=== PATIENT | male | born 1990 | race Caucasian/White ===

== ENCOUNTER → 2017-08-10 | Outpatient (CLI) | payer OTHER ==
[~2017-08-10] MED LIST: /DIPH25TAB PO; PANT40TA2 PO; [UNRECOGNIZED DRUG - REMARK] PO
--- NOTE | 2017-08-10 18:54 | REP ---
Clinical: Trauma. Technique: AP, lateral, bilateral oblique views of the left third digit. Findings: A comminuted nondisplaced fracture of the distal phalanx terminal tuft is appreciated with overlying soft tissue swelling. No subcutaneous emphysema or radiodense foreign body. Impression: Comminuted nondisplaced fracture of the distal phalanx terminal tuft. Signed by Ramana Chowdhury MD 08/10/2017 06:45 P
== END ==
LOC: M WUC 18:09
PROVIDERS: ATTEND Physician Assistant
DX: S62.661A Nondisplaced fracture of distal phalanx of left index finger, initial encounter for closed fracture (principal); X58.XXXA Exposure to other specified factors, initial encounter; Y92.9 Unspecified place or not applicable; Y93.9 Activity, unspecified; Y99.9 Unspecified external cause status

== ENCOUNTER → 2018-03-07 | Outpatient (CLI) | payer BC | LOC: M OUTALCOH 08:02 | DX: F10.10 Alcohol abuse, uncomplicated (principal) ==

== ENCOUNTER 2018-07-30 20:55 | Emergency (ER) | payer OTHER, BC | END 2018-07-30 22:00 | disposition left against medical advice (07) | LOC: M ED 20:55 | DX: R56.9 Unspecified convulsions (principal); R00.0 Tachycardia, unspecified; R94.31 Abnormal electrocardiogram [ECG] [EKG]; F41.1 Generalized anxiety disorder; Z72.0 Tobacco use; F12.10 Cannabis abuse, uncomplicated; F19.10 Other psychoactive substance abuse, uncomplicated; Z79.899 Other long term (current) drug therapy; Z88.2 Allergy status to sulfonamides | CPT/HCPCS: 93005 ==

== ENCOUNTER → 2019-01-08 | Outpatient (REF) | payer OTHER ==
[2019-01-08 17:45] LABS: INFLUENZA A AMPLIFICATION POSITIVE (NEGATIVE); INFLUENZA B AMPLIFICATION NEGATIVE (NEGATIVE)
== END ==
LOC: M LAB REF 16:24
PROVIDERS: ATTEND Physician Assistant Medical
DX: J11.1 Influenza due to unidentified influenza virus with other respiratory manifestations (principal)

== ENCOUNTER → 2020-01-17 | Outpatient (REF) | payer OTHER ==
[~2020-01-17] MED LIST changes: -/DIPH25TAB PO; +DIPH1TAB2 PO
== END ==
LOC: M LAB REF 14:25
PROVIDERS: ATTEND Physician Assistant
DX: R05 Cough (principal)

== ENCOUNTER → 2020-01-27 | Outpatient (CLI) | payer OTHER | LOC: M LABSMTC 11:03 | PROVIDERS: ATTEND Family Medicine | DX: Z11.59 Encounter for screening for other viral diseases (principal); Z20.828 Contact with and (suspected) exposure to other viral communicable diseases ==

== ENCOUNTER 2020-04-12 10:01 | Emergency (ER) | payer OTHER ==
[~2020-04-12] VITALS: Ht 185.4 cm; Wt 127.0 kg
[2020-04-12] MEDS ORDERED: LIDOCAINE 1% MDV 20ML VIAL SC ONE (11:15)
[2020-04-12] MEDS ORDERED: BOOSTRIX/ADACEL VACCINE (DIPHTH/PERTUSS/ACELL/TETANUS) 0.5ML SYR IM ONE (11:15)
[2020-04-12] MEDS ORDERED: KEFL500C17 PO (13:30)
[2020-04-12 13:43] VITALS: BP 150/100
--- NOTE | 2020-04-17 08:43 | REP ---
Four views left second and third fingers: 04/12/2020. Indication: Pain following injury. Comparison: None. Findings: There is no acute fracture, subluxation or dislocation. Soft tissue injury of the second digit is noted. No lytic or blastic lesions are present. Impression: No acute osseous injury. Electronically Signed by Nemesio Mendez DO 04/17/2020 08:34 A
== END 2020-04-12 13:47 | disposition home or self-care (01) ==
LOC: M ED 10:01
DX: S61.213A Laceration without foreign body of left middle finger without damage to nail, initial encounter (principal); S61.211A Laceration without foreign body of left index finger without damage to nail, initial encounter; W29.3XXA Contact with powered garden and outdoor hand tools and machinery, initial encounter; Y92.007 Garden or yard of unspecified non-institutional (private) residence as the place of occurrence of the external cause; Y93.H2 Activity, gardening and landscaping; Y99.9 Unspecified external cause status; Z88.2 Allergy status to sulfonamides; F17.218 Nicotine dependence, cigarettes, with other nicotine-induced disorders

== ENCOUNTER 2020-04-28 14:47 | Emergency (ER) | payer OTHER ==
[~2020-04-28] VITALS: Ht 185.4 cm; Wt 125.2 kg
[~2020-04-28 14:47] MED LIST changes: +KEFL500C17 PO
[2020-04-28] MEDS ORDERED: IBUPROFEN (14:53)
[2020-04-28] MEDS ORDERED: ACETAMINOPHEN 500 MG TAB PO ONE (15:30)
[2020-04-28] MEDS ORDERED: LIDOCAINE 5% (LIDODERM) PATCH TD ONE (15:30)
[2020-04-28] MEDS ORDERED: CYCL-707 PO (16:51)
[2020-04-28] MEDS ORDERED: NAPR-837 PO (16:51)
--- NOTE | 2020-04-28 16:55 | REP ---
CT LUMBAR SPINE WITHOUT CONTRAST: HISTORY: Moderate vertebral tenderness. Limited range of motion. Comparison CT study, December 20, 2013. TECHNIQUE: Helical scanning is acquired and 4 mm axial images are reformatted. Coronal and sagittal multiplanar re-formation images are generated and reviewed. 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 Lumbar vertebral body heights are preserved. No fracture or collapse is seen. Disc spaces are maintained. Alignment is normal. There is no evidence of spondylolysis or spondylolisthesis. At L5-S1, there is a broad-based left paracentral disc protrusion compressing the left ventral margin of the thecal sac and contacting the S1 root. Canal size is borderline at L4-5. No evidence of disc protrusion. Canal size is borderline at L3-4. Study is otherwise unremarkable. IMPRESSION: No fracture or other acute bony abnormality. Broad-based left paracentral disc protrusion suspected at L5-S1 with thecal sac compression. Borderline canal size at L4-5 and L3-4. Electronically Signed by Seamus Clark MD 04/28/2020 05:22 P
[2020-04-28] MEDS ORDERED: CYCLOBENZAPRINE 10MG TABLET PO ONE (17:00)
[2020-04-28] MEDS ORDERED: KETOROLAC TROMETHAMINE 10 MG TAB PO ONE (17:00)
[2020-04-28 17:04] VITALS: BP 134/89
[2020-04-28] MEDS ORDERED: **NOTE PATIENT COMMENT** MISC XX SCH (21:00)
== END 2020-04-28 17:08 | disposition home or self-care (01) ==
LOC: M ED 14:47
DX: M51.27 Other intervertebral disc displacement, lumbosacral region (principal); I10 Essential (primary) hypertension; J45.909 Unspecified asthma, uncomplicated; K21.9 Gastro-esophageal reflux disease without esophagitis; R51 Headache; F17.210 Nicotine dependence, cigarettes, uncomplicated; Z88.2 Allergy status to sulfonamides

== ENCOUNTER 2022-09-28 15:21 | Emergency (ER) | payer OTHER ==
[~2022-09-28] VITALS: Ht 182.9 cm; Wt 119.7 kg
[~2022-09-28 15:21] MED LIST changes: +CYCL-707 PO; +IBUPROFEN; +NAPR-837 PO
[2022-09-28 15:23] VITALS: BP 178/95
[2022-09-28] MEDS ORDERED: CLON-412 (15:33)
[2022-09-28] MEDS ORDERED: BUPR1FIL SL (15:33)
[2022-09-28 17:34] LABS: BLOOD UREA NITROGEN 12 MG/DL (9-23); CALCIUM LEVEL 9.4 MG/DL (8.5-10.1); CARBON DIOXIDE LEVEL 24 MMOL/L (20-31); CHLORIDE LEVEL 105 MMOL/L (98-107); CPK CREATINE PHOSPHOKINASE 164 U/L (46-171); CREATININE FOR GFR 0.76 MG/DL (0.70-1.30); GLOMERULAR FILTRATION RATE > 60.0 (>60); GLUCOSE, FASTING 104 MG/DL (60-100); POTASSIUM SERUM 3.8 MMOL/L (3.5-5.1); SODIUM LEVEL 139 MMOL/L (136-145)
== END 2022-09-28 19:10 | disposition home or self-care (01) ==
LOC: M ED 15:21
DX: T40.5X1A Poisoning by cocaine, accidental (unintentional), initial encounter (principal); S00.03XA Contusion of scalp, initial encounter; W01.10XA Fall on same level from slipping, tripping and stumbling with subsequent striking against unspecified object, initial encounter; F19.10 Other psychoactive substance abuse, uncomplicated; F17.200 Nicotine dependence, unspecified, uncomplicated; Z88.2 Allergy status to sulfonamides

== ENCOUNTER 2022-09-30 03:03 | Emergency (ER) | payer OTHER ==
[~2022-09-30] VITALS: Ht 182.9 cm; Wt 121.5 kg
[~2022-09-30 03:03] MED LIST changes: +BUPR1FIL SL; +CLON-412
[2022-09-30 07:32] LABS: BLOOD UREA NITROGEN 22 MG/DL (9-23); CALCIUM LEVEL 8.8 MG/DL (8.5-10.1); CARBON DIOXIDE LEVEL 25 MMOL/L (20-31); CHLORIDE LEVEL 106 MMOL/L (98-107); CPK CREATINE PHOSPHOKINASE 157 U/L (46-171); CREATININE FOR GFR 0.88 MG/DL (0.70-1.30); GLOMERULAR FILTRATION RATE > 60.0 (>60); GLUCOSE, FASTING 134 MG/DL (60-100); MB/CK RELATIVE INDEX 1.27 (< OR =4); POTASSIUM SERUM 4.2 MMOL/L (3.5-5.1); SODIUM LEVEL 140 MMOL/L (136-145)
[2022-09-30] MEDS ORDERED: PANTOPRAZOLE 40MG VIAL IV ONE (08:35)
[2022-09-30 09:56] LABS: BASO % 0.4 % (0.0-1.0); EOS # 0.3 10^3/uL (0.0-0.5); EOS % 3.5 % (0.0-3.0); HEMATOCRIT 39.6 % (42.0-52.0); HEMOGLOBIN 13.2 g/dl (13.5-17.5); LYMPH # 2.8 10^3/uL (1.5-5.0); LYMPH % 36.2 % (24.0-44.0); MEAN CORPUSCULAR HGB CONC 33.3 g/dl (32.0-36.5); MONO # 0.5 10^3/uL (0.0-0.8); MONO % 6.7 % (2.0-8.0); NEUTROPHILS # 4.1 10^3/uL (1.5-8.5); NEUTROPHILS % 52.9 % (36.0-66.0); PLATELET COUNT, AUTOMATED 219 10^3/uL (150-450); RED BLOOD COUNT 4.26 10^6/uL (4.30-6.10); WHITE BLOOD COUNT 7.8 10^3/uL (4.0-10.0)
[2022-09-30 10:06] LABS: INR 0.96
[2022-09-30 10:07] LABS: PARTIAL THROMBOPLASTIN TIME 29.7 SECONDS (24.8-34.2)
[2022-09-30 10:30] LABS: AMPHETAMINES LEVEL URINE NEGATIVE (NEGATIVE); BARBITURATES URINE NEGATIVE (NEGATIVE); BENZODIAZEPINES URINE NEGATIVE (NEGATIVE); CANNABINOIDS URINE NEGATIVE (NEGATIVE); METHADONE URINE NEGATIVE (NEGATIVE)
[2022-09-30] MEDS ORDERED: ACETAMINOPHEN 500 MG TAB PO ONE (10:35)
[2022-09-30] MEDS ORDERED: ISOVUE-370 76% 100ML VIAL As Ordered ONE (10:52)
[2022-09-30 11:10] LABS: D-DIMER QUANT < 270 ng/ml (<500)
[2022-09-30 11:12] LABS: CK-MB VALUE MASS 1.4 NG/ML (<3.6); LIPASE 36 U/L (12-53)
[2022-09-30 11:14] LABS: ALBUMIN 3.6 G/DL (3.2-5.2); ALKALINE PHOSPHATASE 67 U/L (46-116); ALT/SGPT 21 U/L (7.0-40); AST/SGOT 17 U/L (<34); BILIRUBIN,DIRECT 0.1 MG/DL (<0.4); BILIRUBIN,TOTAL 0.5 MG/DL (0.3-1.2)
[2022-09-30 11:16] LABS: CPK CREATINE PHOSPHOKINASE 137 U/L (46-171); MB/CK RELATIVE INDEX 1.02 (< OR =4)
[2022-09-30] MEDS ORDERED: HOME MED LIST COMPLETE! XX SCH (11:55)
[2022-09-30 12:00] LABS: CK-MB VALUE MASS 1.3 NG/ML (<3.6); RSV AMPLIFICATION NEGATIVE (NEGATIVE)
[2022-09-30] MEDS ORDERED: LORazepam 2 MG/ML VIAL IV STA (12:27)
[2022-09-30 12:37] LABS: CPK CREATINE PHOSPHOKINASE 117 U/L (46-171); MB/CK RELATIVE INDEX 1.11 (< OR =4)
[2022-09-30 13:23] VITALS: BP 129/78
[2022-09-30 14:25] LABS: PHENCYCLIDINE URINE NEGATIVE (NEGATIVE)
[2022-09-30 14:36] LABS: COCAINE METABOLITE URINE POSITIVE (NEGATIVE); OPIATES URINE POSITIVE (NEGATIVE)
== END 2022-09-30 13:59 | disposition left against medical advice (07) ==
LOC: M ED 03:03
DX: R07.9 Chest pain, unspecified (principal); F19.10 Other psychoactive substance abuse, uncomplicated; R53.1 Weakness; Z53.20 Procedure and treatment not carried out because of patient's decision for unspecified reasons; M79.651 Pain in right thigh; R33.9 Retention of urine, unspecified; R94.31 Abnormal electrocardiogram [ECG] [EKG]; I10 Essential (primary) hypertension; K21.9 Gastro-esophageal reflux disease without esophagitis; J45.909 Unspecified asthma, uncomplicated; R51.9 Headache, unspecified; F32.A Depression, unspecified; F41.9 Anxiety disorder, unspecified; Z88.2 Allergy status to sulfonamides; Z79.899 Other long term (current) drug therapy
CPT/HCPCS: 70450; 71046; 71275; 72125; 80048; 80076; 80307; 81000; 81015; 82550; 82553; 83605; 83690; 85025; 85379; 85610; 85730; 87631; 93005; 93971; 96374; 99284; C9113

== ENCOUNTER 2022-10-03 22:35 | Emergency (ER) | payer OTHER ==
[~2022-10-03] VITALS: Ht 182.9 cm; Wt 121.4 kg
[2022-10-03] MEDS ORDERED: ASPI-161 PO (22:44)
[2022-10-04 08:34] LABS: BASO % 0.5 % (0.0-1.0); EOS # 0.3 10^3/uL (0.0-0.5); EOS % 3.2 % (0.0-3.0); HEMATOCRIT 41.5 % (42.0-52.0); HEMOGLOBIN 13.9 g/dl (13.5-17.5); LYMPH # 2.4 10^3/uL (1.5-5.0); MEAN CORPUSCULAR HEMOGLOBIN 30.6 pg (27.0-33.0); MEAN CORPUSCULAR HGB CONC 33.5 g/dl (32.0-36.5); MEAN CORPUSCULAR VOLUME 91.4 fl (80.0-96.0); MONO # 0.5 10^3/uL (0.0-0.8); MONO % 6.4 % (2.0-8.0); NEUTROPHILS # 4.5 10^3/uL (1.5-8.5); NEUTROPHILS % 58.1 % (36.0-66.0); PLATELET COUNT, AUTOMATED 233 10^3/uL (150-450); RED BLOOD COUNT 4.54 10^6/uL (4.30-6.10); WHITE BLOOD COUNT 7.7 10^3/uL (4.0-10.0)
[2022-10-04 09:02] LABS: BLOOD UREA NITROGEN 14 MG/DL (9-23); CARBON DIOXIDE LEVEL 29 MMOL/L (20-31); CHLORIDE LEVEL 103 MMOL/L (98-107); CK-MB VALUE MASS < 1.0 NG/ML (<3.6); CPK CREATINE PHOSPHOKINASE 52 U/L (46-171); CREATININE FOR GFR 0.72 MG/DL (0.70-1.30); GLOMERULAR FILTRATION RATE > 60.0 (>60); GLUCOSE, FASTING 112 MG/DL (60-100); MB/CK RELATIVE INDEX 1.92 (< OR =4); SODIUM LEVEL 139 MMOL/L (136-145)
[2022-10-04 09:04] LABS: APPEARANCE, URINE MANUAL CLEAR (CLEAR); COLOR, URINE MANUAL YELLOW (YELLOW)
[2022-10-04 09:07] LABS: BILIRUBIN, URINE MANUAL NEGATIVE (NEGATIVE); BLOOD URINE MANUAL POSITIVE (NEGATIVE); GLUCOSE, URINE (UA) MANUAL NEGATIVE (NEGATIVE); KETONE, URINE MANUAL NEGATIVE (NEGATIVE); LEUKOCYTE ESTERASE, URINE MAN NEGATIVE (NEGATIVE); NITRITE, URINE MANUAL NEGATIVE (NEGATIVE); PROTEIN, URINE MANUAL NEGATIVE (NEGATIVE); UROBILINOGEN, URINE MANUAL 1 MG mg/dl (NORMAL)
[2022-10-04 09:21] LABS: BACTERIA, URINE SMALL AMOUNT; HYALINE CAST, URINE NONE SEEN /lpf (0-1); MUCUS, URINE SMALL AMOUNT (NEGATIVE); SQUAMOUS EPITHELIAL CELL URINE SMALL AMOUNT /hpf (SMALL AMT); WBC, URINE 0-1 /hpf (0-3)
[2022-10-04 10:16] LABS: CK-MB VALUE MASS < 1.0 NG/ML (<3.6)
[2022-10-04 10:18] LABS: CPK CREATINE PHOSPHOKINASE 50 U/L (46-171)
[2022-10-04] MEDS ORDERED: NORV5TAB PO (11:13)
[2022-10-04 11:27] VITALS: BP 142/85
== END 2022-10-04 11:29 | disposition home or self-care (01) ==
LOC: M ED 22:35
DX: R07.89 Other chest pain (principal); R03.0 Elevated blood-pressure reading, without diagnosis of hypertension; K21.9 Gastro-esophageal reflux disease without esophagitis; F19.10 Other psychoactive substance abuse, uncomplicated; F17.210 Nicotine dependence, cigarettes, uncomplicated; Z88.2 Allergy status to sulfonamides; Z79.82 Long term (current) use of aspirin; Z79.899 Other long term (current) drug therapy

== ENCOUNTER → 2023-07-13 | Outpatient (CLI) | payer OTHER ==
[~2023-07-13] MED LIST changes: +ASPI-161 PO; +NORV5TAB PO
[2023-07-13 08:43] LABS: BASO % 0.7 % (0.0-1.0); EOS # 0.3 10^3/uL (0.0-0.5); EOS % 4.7 % (0.0-3.0); HEMATOCRIT 42.4 % (42.0-52.0); HEMOGLOBIN 14.3 g/dl (13.5-17.5); LYMPH # 1.9 10^3/uL (1.5-5.0); LYMPH % 33.7 % (24.0-44.0); MEAN CORPUSCULAR HEMOGLOBIN 30.8 pg (27.0-33.0); MEAN CORPUSCULAR HGB CONC 33.7 g/dl (32.0-36.5); MEAN CORPUSCULAR VOLUME 91.4 fl (80.0-96.0); MONO # 0.5 10^3/uL (0.0-0.8); MONO % 9.1 % (2.0-8.0); NEUTROPHILS # 2.9 10^3/uL (1.5-8.5); NEUTROPHILS % 50.9 % (36.0-66.0); PLATELET COUNT, AUTOMATED 216 10^3/uL (150-450); RED BLOOD COUNT 4.64 10^6/uL (4.30-6.10); WHITE BLOOD COUNT 5.7 10^3/uL (4.0-10.0)
[2023-07-13 09:09] LABS: ALBUMIN 3.8 G/DL (3.2-5.2); ALKALINE PHOSPHATASE 63 U/L (46-116); ALT/SGPT 26 U/L (7.0-40); AST/SGOT 10 U/L (<34); BILIRUBIN,TOTAL 0.7 MG/DL (0.3-1.2); BLOOD UREA NITROGEN 19 MG/DL (9-23); CALCIUM LEVEL 8.8 MG/DL (8.5-10.1); CARBON DIOXIDE LEVEL 28 MMOL/L (20-31); CHLORIDE LEVEL 105 MMOL/L (98-107); CHOLESTEROL LEVEL 208 MG/DL (<200); CHOLESTEROL RISK RATIO 6.02 (<5); CREATININE FOR GFR 0.64 MG/DL (0.70-1.30); GLOMERULAR FILTRATION RATE > 60.0 (>60); GLUCOSE, FASTING 105 MG/DL (60-100); HDL CHOLESTEROL 34.5 MG/DL (>40); LDL CHOLESTEROL 120.1 MG/DL (<100); NON-HDL-C 173.5 MG/DL; POTASSIUM SERUM 4.2 MMOL/L (3.5-5.1); SODIUM LEVEL 140 MMOL/L (136-145); TOTAL PROTEIN 6.2 G/DL (5.7-8.2); TRIGLYCERIDES LEVEL 267 MG/DL (<150)
[2023-07-13 10:00] LABS: HEMOGLOBIN A1c 5.5 % (4.0-6.0)
== END ==
LOC: M LAB 07:35
PROVIDERS: ATTEND Nurse Practitioner Family
DX: Z13.220 Encounter for screening for lipoid disorders (principal)

== ENCOUNTER → 2025-09-23 | Outpatient (CLI) | payer BC ==
[~2025-09-23] MED LIST changes: -ASPI-161 PO; +ASPI-615 PO
[2025-09-23 15:17] LABS: ALT/SGPT 29 U/L (7.0-40); AST/SGOT 14 U/L (<34); CALCIUM LEVEL 9.0 MG/DL (8.5-10.1); CARBON DIOXIDE LEVEL 30 MMOL/L (20-31); CHLORIDE LEVEL 105 MMOL/L (98-107); CHOLESTEROL LEVEL 212 MG/DL (<200); CHOLESTEROL RISK RATIO 6.10 (<5); CREATININE FOR GFR 0.77 MG/DL (0.70-1.30); GLOMERULAR FILTRATION RATE > 90.0 (>60); LDL CHOLESTEROL 129.3 MG/DL (<100); MAGNESIUM LEVEL 1.8 MG/DL (1.8-2.4); NON-HDL-C 177.3 MG/DL; POTASSIUM SERUM 4.7 MMOL/L (3.5-5.1); SODIUM LEVEL 142 MMOL/L (136-145); TRIGLYCERIDES LEVEL 240 MG/DL (<150)
[2025-09-23 15:18] LABS: BASO # 0.1 10^3/uL (0.0-0.2); BASO % 0.7 % (0.0-1.0); EOS # 0.4 10^3/uL (0.0-0.5); EOS % 3.9 % (0.0-3.0); LYMPH # 2.1 10^3/uL (1.5-5.0); LYMPH % 22.9 % (24.0-44.0); MONO # 0.8 10^3/uL (0.0-0.8); MONO % 8.6 % (2.0-8.0); NEUTROPHILS # 5.7 10^3/uL (1.5-8.5); NEUTROPHILS % 63.2 % (36.0-66.0); PLATELET COUNT, AUTOMATED 258 10^3/uL (150-450)
[2025-09-23 15:19] LABS: CK-MB VALUE MASS 1.6 NG/ML (<3.6)
[2025-09-23 15:21] LABS: FREE T4 1.05 NG/DL (0.89-1.76)
[2025-09-23 15:24] LABS: CPK CREATINE PHOSPHOKINASE 69 U/L (46-171); MB/CK RELATIVE INDEX 2.31 (< OR =4)
== END ==
LOC: M PLALAB 12:49
PROVIDERS: ATTEND Nurse Practitioner Family
DX: E78.2 Mixed hyperlipidemia (principal); I10 Essential (primary) hypertension; R07.9 Chest pain, unspecified